=== PATIENT | male | born 1975 | race Caucasian/White ===

== ENCOUNTER 2023-07-30 09:47 | Emergency (ER) | payer BC, SELFPAY ==
[2023-07-30 09:50] VITALS: BP 122/84
--- NOTE | 2023-07-30 10:51 | ED.GENMED ---
History of Present Illness
General
Chief Complaint: Skin Problem
Source: patient
Exam Limitations: none
Time Seen by Provider: 07/30/23 10:24
Nursing documentation reviewed up to this point in time: agreed with
Travel History
Have you had any contact with someone who has COVID-19?: No
Do you have any symptoms of coronavirus? Fever > 100 degrees, chills, cough, shortness of breath, sore throat, loss of taste or smell, muscle aches, or headache?: No
History of Present Illness
History of Present Illness:
Patient presents to ED secondary to ongoing itchy/burning rash noted over his left arm over the past 2 weeks. Patient was evaluated urgent care center 1 week ago and was prescribed prednisone, which has not been filled. Since then, patient has
noticed drainage from the rash. Denies fever or chills. Denies nausea or vomiting. Denies trauma. Denies any inciting event or insect bites. Denies previous history of similar symptoms. Patient is currently taking Ozempic, and has for the past
7 months secondary to new onset diabetes.
Past History
Past History
ED Past Medical History: Hypercholesterolemia and Other (Diverticulitis)
ED Past Surgical History: None
Social History
Tobacco: Smoker
Alcohol: Occasional
Drug: None
Personal:
Living: with family
Employment: Employed (taxation agent )
Family History
Family History: Negative CAD
Review of Systems
Review of Systems
Allergies reviewed?: Yes
All Other Systems: ROS reviewed and negative except as documented in HPI and ROS
Constitutional: Reports no symptoms; Denies fever
ABD/GI: Reports no symptoms
Musculoskeletal: Reports no symptoms
Skin: Reports itching and rash
Neurological: Reports no symptoms
Phy Exam
Physical Exam
Physical Exam:
Physical Exam
General: no apparent distress, not acutely ill. afebrile
Head: nc/at. eomi
Neck: supple. normal range of motion.
Neuro: alert and oriented. no focal neurological deficits
Skin: an approx 2cm x 6cm area of erythema, flat, nonraised, lesion noted with multiple nonruptured, 1mm lesion below. nontender to palpation. no active drainage
Psychiatric: well kept. interactive and cooperative
Extremities: no edema. no calf tenderness.
Course
Vital Signs
Initial and Last Documented VS:
Initial Vital Signs
Temp Pulse Resp BP Pulse Ox
98.3 F 89 18 122/84 97
07/30/23 09:50 07/30/23 09:50 07/30/23 09:50 07/30/23 09:50 07/30/23 09:50
Last Documented Vital Signs
Temp Pulse Resp BP Pulse Ox
98.3 F 71 16 130/81 98
07/30/23 09:50 07/30/23 11:12 07/30/23 11:12 07/30/23 11:12 07/30/23 11:12
MDM/Problems Addressed
MDM/Problems Addressed:
History and exam consistent with nonspecific rash, does not appear to be [place] in appearance. Nonspecific rash which now appears to have ruptured with appearance of healing. Possible rash due to Ozempic injection?? However, in light of
patient's diabetic history, patient is at mild to moderate risk for developing superimposed infection. As such, patient will be started on Keflex x 5 days. Patient has appointment with his primary care physician next week, at which time he will be
reevaluated.
*Critical Care Note
Total Time (30-74mins, 75-104mins- exclusive of procedures): Not Applicable
ED Attending Note
-
Portions of this chart may have been created with voice recognition software.� Occasional wrong word or��sound alike� substitutions may have occurred due to the inherent limitations of voice recognition software.
Discharge Plan
Departure
Patient Disposition: Home (Routine Discharge)
Date of Disposition: 07/30/23
Time of Disposition: 11:01
Patient with high blood pressure during this ER visit?: No
Discharge Problem:
Rash
Instructions: Skin Rash (DC)
Prescriptions:
New
cephalexin 500 mg capsule
500 mg PO Q8H Qty: 15 0RF
No Action
finasteride [Propecia] 1 MG tablet
1 mg PO DAILY
sacubitril-valsartan [Entresto] 1 EACH tablet
1 ea PO BID
Metoprolol
1 tab PO HS
Vitamin D3 (cholecalciferol):
10,000 units PO DAILY
Referrals:
UNKNOWN - PT DOES,NOT KNOW [Family Provider] -
Activity Restrictions/Additional Instructions:
As discussed, please follow-up with your primary care physician next week for reevaluation. Your prescription has been sent electronically to [facility] in [place].
Interventions
Interventions:
*Risk Screen - Suicide Last Done: 07/30/23 09:55
*General Assessment Last Done: 07/30/23 10:59
*Neglect/Abuse Screening Last Done: 07/30/23 09:55
ED- Fall Risk Assessment Last Done: 07/30/23 11:12
*ED COVID-19 Vaccine History Last Done: 07/30/23 09:55
*Nursing Disposition Last Done: 07/30/23 11:12
ED-Skin Assessment Last Done: 07/30/23 11:12
Discharge Date and Time
Discharge Date/Time: 07/30/23 11:14
Print Language: AZERI
[2023-07-30 11:12] VITALS: BP 130/81
== END 2023-07-30 11:14 | disposition home or self-care (01) ==
LOC: EMR 09:47
PROVIDERS: EMERGENCY PHYSICIAN Emergency Medicine
DX: R21 Rash and other nonspecific skin eruption (principal); E11.9 Type 2 diabetes mellitus without complications; E78.00 Pure hypercholesterolemia, unspecified; F17.200 Nicotine dependence, unspecified, uncomplicated
CPT/HCPCS: 99282

== ENCOUNTER 2024-01-08 23:26 | Emergency (ER) | payer BC, SELFPAY ==
[2024-01-08 23:28] VITALS: BP 99/69
[2024-01-08 23:30] LABS: Glucose - Point of Care 102 mg/dl (70-99)
[2024-01-08 23:32] VITALS: BMI 31.2
[2024-01-08 23:34] VITALS: BP 104/78
[2024-01-08] MEDS: NSS 1000 IV (23:38)
[2024-01-08 23:40] VITALS: BP 116/85
[2024-01-08 23:45] VITALS: BP 119/86
[2024-01-08 23:55] LABS: Hematocrit 40.9 % (39.0-52.0); Hemoglobin 14.4 g/dL (13.0-18.0); Mean Corp Hgb Conc. 35.2 g/dL (33.0-37.0); Mean Corpuscular Hgb 29.6 pg (27.0-31.0); Mean Corpuscular Volume 84.2 fL (80.0-94.0); Mean Platelet Volume 10.5 fL (7.4-10.4); Platelet Count 325 10^3/uL (130-400); Red Blood Cell Count 4.86 10^6/uL (4.70-6.10); Red Cell Dist. Width 13.5 % (11.5-14.5); White Blood Cell Count 13.4 10^3/uL (4.8-10.8)
[2024-01-09] VITALS: BP 115/83
[2024-01-09 00:10] LABS: ALT (SGPT) 56 U/L (0-50); AST (SGOT) 42 U/L (17-59); Albumin 4.4 g/dl (3.5-5.0); Alkaline Phosphatase 35 U/L (38-126); Blood Urea Nitrogen 24 mg/dl (9-20); Calcium 9.4 mg/dl (8.4-10.2); Carbon Dioxide 21 mmol/L (22-30); Chloride 104 mmol/L (98-107); Estimated Creatinine Clearance > 125 ml/min; Glucose 121 mg/dl (70-99); Potassium 4.3 mmol/L (3.5-5.1); Sodium 139 mmol/L (135-145); Total Bilirubin 0.9 mg/dl (0.2-1.3); Total Protein 7.2 g/dl (6.3-8.2); eGFR > 60.00
[2024-01-09 00:15] VITALS: BP 117/78
--- NOTE | 2024-01-09 00:21 | ED.GENMED ---
History of Present Illness
General
Chief Complaint: Fainting/Passed Out
Source: patient and spouse
Exam Limitations: none
Time Seen by Provider: 01/08/24 23:29
Nursing documentation reviewed up to this point in time: agreed with
History of Present Illness
History of Present Illness:
Patient is a 48-year-old male an episode of syncope when his is being admitted to the hospital for pneumonia and there is a discussion whether this could be cancer or not. Patient became lightheaded and passed out. Patient is passed out
before but not for some time. Patient denies any headaches, visual or speech difficulties. Patient denies any focal weakness or ataxia. Patient denies any chest pain, shortness of breath or palpitations. Patient did admit to diaphoresis and
feeling nauseous but denies any vomiting, diarrhea, melena or hematochezia. Patient's heart rate was in the 30s to 40s and he was hypotensive when the staff responded to home.
Past History
Past History
ED Past Medical History: Hypercholesterolemia, NIDDM, Hypothyroidism and Other (Diverticulitis, sleep apnea)
ED Past Surgical History: None
Social History
Tobacco: Former smoker
Alcohol: Occasional
Drug: None
Personal:
Living: with family
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
Family History
Family History: Negative CAD
Review of Systems
Review of Systems
All Other Systems: ROS reviewed and negative except as documented in HPI and ROS
Constitutional: Denies fever, fatigue or chills
EENT: Reports no symptoms
Respiratory: Reports no symptoms
Cardiac: Reports diaphoresis and syncope; Denies chest pain or palpitations
ABD/GI: Reports nausea; Denies abdominal pain, vomiting, diarrhea, constipated, bloody stools, black stools or anorexia
: Reports no symptoms
Musculoskeletal: Reports no symptoms
Skin: Reports no symptoms
Neurological: Reports no symptoms
Hematologic/Lymphatic: Reports no symptoms
Psychiatric: Reports no symptoms
Phy Exam
Physical Exam
Physical Exam:
Physical Exam
General: mild distress, alert and appropriate, well nourished, well hydrated
HENT: Normocephalic, supple with no lymphadenopathy, no thyromegaly
Eyes: Clear sclera, conjuctiva without injection
Heart: Regular rhythm and bradycardic rate. No S3, S4. No murmur. No NVD
Lungs: No respiratory distress, no stridor, lung sounds clear and equal bilaterally
Abdomen: Soft, nontender, no organomegaly,BS good
Neuro: Alert and oriented x 3, CN II - XII intact, no motor focality, no cerebellar dysfunction
Skin: no rash. Pale diaphoretic
Psychiatric: well kept. interactive and cooperative
Extremities: No edema, cyanosis, tenderness, Good and equal peripheral pulses.
Course
Orders/Labs/Results
Orders:
Orders
01/08/24 23:28
EKG [Electrocardiogram (*1)] Urgent
Reason for Study: Syncope
EKG- Treatment ONCE
01/08/24 23:34
0.9% Sodium Chloride 1000 ml [Nss] 1,000 ml IV BOLUS
01/08/24 23:39
Complete Blood Count/With Diff Urgent
Comprehensive Metabolic Panel Urgent
Abnormal Lab Results
01/08/24 01/08/24
23:29 23:39
WBC 13.4 H 10^3/uL
(4.8-10.8)
MPV 10.5 H fL
(7.4-10.4)
Carbon Dioxide 21 L mmol/L
(22-30)
BUN 24 H mg/dl
(9-20)
Glucose 121 H mg/dl
(70-99)
ALT 56 H U/L
(0-50)
Alkaline Phosphatase 35 L U/L
(38-126)
POC Glucose 102 H mg/dl
(70-99)
01/08/24 23:39
01/08/24 23:39
Vital Signs
Initial and Last Documented VS:
Initial Vital Signs
Temp Pulse Resp BP Pulse Ox
99 F 70 18 99/69 96
01/08/24 23:28 01/08/24 23:28 01/08/24 23:28 01/08/24 23:28 01/08/24 23:28
Last Documented Vital Signs
Temp Pulse Resp BP Pulse Ox
99 F 76 13 117/78 96
01/08/24 23:28 01/09/24 00:15 01/09/24 00:15 01/09/24 00:15 01/09/24 00:15
*Radiology
Radiology exam reviewed: other (Not applicable)
*Pulse Oximetry
Patient hypoxic: no
*EKG
Interpreted by ED Provider?: Yes
EKG Intrepretation Date: 01/09/24
EKG Intrepretation Time: 00:24
Interpretation: normal
Comparison EKG: no changes
Heart Rate: 47
Rate: bradycardiac
Rhythm: sinus
[place]: normal axis
Interval: normal interval
QRS Pattern: normal QRS
Ischemia: no ischemia
*Gas Worker Interpretation
Rate: bradycardiac
Interpretation: abnormal
Heart Rate: 44
Rhythm: sinus
*Critical Care Note
Total Time (30-74mins, 75-104mins- exclusive of procedures): Not Applicable
Update Note
Update Note:
Repeat exam of the patient shows a heart rate of 74 patient feeling much improved. Labs unremarkable. Patient will be discharged as vasovagal syncope.
ED Attending Note
-
Portions of this chart may have been created with voice recognition software.� Occasional wrong word or��sound alike� substitutions may have occurred due to the inherent limitations of voice recognition software.
Discharge Plan
Departure
Patient Disposition: Home (Routine Discharge)
Date of Disposition: 01/09/24
Time of Disposition: 00:25
Patient with high blood pressure during this ER visit?: No
Condition: Good
Covid-19: Not Applicable
Discharge Problem:
Vasovagal syncope
Instructions: Syncope (Fainting) (DC)
Prescriptions:
No Action
metformin 1,000 mg Tablet
1,000 mg PO BID
Patient Comments:
pt says he is not good about taking this regularly 01/08/24
Ozempic 2 mg/dose (8 mg/3 mL) Pen Injector
2 mg SC WE
Activity Restrictions/Additional Instructions:
Make sure to drink plenty of fluids. Follow-up with your family doctor. Any problems please return.
Interventions
Interventions:
*Risk Screen - Suicide Last Done: 01/08/24 23:29
*General Assessment Last Done: 01/08/24 23:29
*Neglect/Abuse Screening Last Done: 01/08/24 23:29
*ED COVID-19 Vaccine History Last Done: 01/08/24 23:34
ED- Cardiac Assessment Last Done: 01/08/24 23:35
ED- Neurological Assessment Last Done: 01/08/24 23:35
Discharge Date and Time
Print Language: KENYAN
[2024-01-09 00:30] VITALS: BP 118/79
[2024-01-09 00:45] LABS: % Basophils 0.5 % (0-2); % Eosinophils 2.2 % (0-6); % Immature Granulocytes 0.4 % (0-0.5); % Lymphocytes 40.1 % (20.5-51.1); % Monocytes 10.7 % (1.7-9.3); % Neutrophils 46.1 % (42.2-75.2); Absolute Basophils 0.1 10^3/uL (0-0.2); Absolute Eosinophils 0.3 10^3/uL (0-0.7); Absolute Immature Granulocytes 0.1 10^3/uL (0-0.05); Absolute Lymphocytes 5.4 10^3/uL (1.2-3.4); Absolute Monocytes 1.4 10^3/uL (0.1-0.6); Absolute Neutrophils 6.2 10^3/uL (1.4-6.5); Nucleated Red Blood Cells % 0 % (-)
== END 2024-01-09 00:49 | disposition home or self-care (01) ==
LOC: EMR 23:26
PROVIDERS: EMERGENCY PHYSICIAN Emergency Medicine; FAMILY PHYSICIAN Internal Medicine
DX: R55 Syncope and collapse (principal); Z87.891 Personal history of nicotine dependence
CPT/HCPCS: 99284; 96360; 80053; 82962; 85025; 93005

== ENCOUNTER 2024-04-09 16:43 | Emergency (ER) | payer BC, SELFPAY ==
[2024-04-09 16:47] VITALS: BP 134/93
--- NOTE | 2024-04-09 17:35 | ED.GENMED ---
History of Present Illness
General
Chief Complaint: Back Pain
Time Seen by Provider: 04/09/24 17:35
History of Present Illness
History of Present Illness:
TIME OF INITIAL ENCOUNTER: 5:40 PM
HPI: Patient primarily complains of right flank pain. Earlier, he did have some upper back pain but is now localized to the right flank. He denies any urinary hesitancy or any other urinary symptoms. He has had no fevers. He has no abdominal
pain. He declines analgesia.
EXAM:
GENERAL: Well appearing in no distress
HEENT: Moist oral mucosa
CARDIOVASCULAR: No murmurs, normal heart rate, regular rhythm, No chest wall tenderness
PULMONARY: No respiratory distress, breath sounds are clear and equal
ABDOMEN: Soft with no peritoneal signs, no tenderness
BACK: Minimal right CVA tenderness
NEUROLOGIC: Excellent strength all extremities, no coordination deficits
PSYCHIATRIC: Appropriate mental status, normal insight and judgement
EXTREMITIES: Nontender, no edema, moves all extremities equally
SKIN: No rash, no lesions
NUMBER AND COMPLEXITY OF PROBLEMS ADDRESSED AT THE ENCOUNTER
� Chronic conditions affecting care: Former smoker, diabetes, thyroid disease
� Acute Exacerbation and/or Progression of Chronic Illness: This is an acute problem
� Differential Diagnosis includes: Musculoskeletal etiology, ureteral stone, UTI/pyelonephritis
AMOUNT AND/OR COMPLEXITY OF DATA TO BE REVIEWED AND ANALYZED
� I performed an independent evaluation of and my interpretation is:
EKG:
CT: CT abdomen pelvis does not show any signs of stone
X-rays:
Laboratory Studies: CBC, CMP, lipase all normal
Other:
� Review of other/old records: The patient was seen here in the emergency department after syncopal event 3 months ago
� Clinical information was obtained by an independent historian: None needed
� Prescriptions/Medications Considered but not given: Declines analgesia
� Further testing considered but not performed:
RISK OF COMPLICATIONS AND/OR MORBIDITY OR MORTALITY OF PATIENT MANAGEMENT
� Social determinants of health affecting care: Lives at home
� Discussion with other providers:
� Escalation of care including admission/observation vs risk of discharge considered: The patient appears rather comfortable. He declines analgesia. Will obtain CT imaging given the acute right flank pain.
ANY OTHER UPDATES:
Prior to discharge, CT imaging does not show any clear cause for his symptoms. We talked about the possibly of mild diverticulitis however he was told in the past he does take Tylenol for this. I doubt that he has diverticulitis. He will take
Tylenol we talked about using Motrin for musculoskeletal etiology of the pain. He requested blood work which I feel is reasonable given the location of upper abdominal discomfort. Lipase, chemistries as well as white count are all normal.
Past History
Past History
ED Past Medical History: Hypercholesterolemia, NIDDM, Hypothyroidism and Other (Diverticulitis, sleep apnea)
ED Past Surgical History: None
Social History
Tobacco: Former smoker
Alcohol: Occasional
Drug: None
Personal:
Living: with family
Employment: Employed (sales agent insurance )
Family History
Family History: Negative CAD
Phy Exam
Physical Exam
Physical Exam:
See HPI
Course
Orders/Labs/Results
Orders:
Orders
04/09/24 17:49
CT Abd/pel Without Iv Or Oral Urgent
Comment:
Reason For Exam: acute R flank pain
04/09/24 18:07
Urinalysis Reflex To Culture Urgent
Date Specimen was Collected: 04/09/24
Time Specimen was Collected: 18:06
04/09/24 20:33
Comprehensive Metabolic Panel Urgent
Lipase Urgent
04/09/24 21:39
Complete Blood Count/With Diff Urgent
Abnormal Lab Results
04/09/24 04/09/24
20:33 21:39
Absolute Monos (auto) 0.9 H 10^3/uL
(0.1-0.6)
Monocytes % 11.0 H %
(1.7-9.3)
BUN 21 H mg/dl
(9-20)
Glucose 105 H mg/dl
(70-99)
04/09/24 21:39
04/09/24 20:33
Vital Signs
Initial and Last Documented VS:
Initial Vital Signs
Temp Pulse Resp BP Pulse Ox
36.6 C 74 18 134/93 98
04/09/24 16:47 04/09/24 16:47 04/09/24 16:47 04/09/24 16:47 04/09/24 16:47
Last Documented Vital Signs
Temp Pulse Resp BP Pulse Ox
36.6 C 76 18 136/83 98
04/09/24 16:47 04/09/24 22:11 04/09/24 22:11 04/09/24 22:11 04/09/24 22:11
*Critical Care Note
Total Time (30-74mins, 75-104mins- exclusive of procedures): Not Applicable
ED Attending Note
-
Portions of this chart may have been created with voice recognition software.� Occasional wrong word or��sound alike� substitutions may have occurred due to the inherent limitations of voice recognition software.
Discharge Plan
Departure
Patient Disposition: Home (Routine Discharge)
Date of Disposition: 04/09/24
Time of Disposition: 20:02
Patient with high blood pressure during this ER visit?: Yes
Discharge Problem:
Acute right flank pain
Prescriptions:
No Action
metformin 1,000 mg Tablet
1,000 mg PO BID
Patient Comments:
pt says he is not good about taking this regularly 01/08/24
Ozempic 2 mg/dose (8 mg/3 mL) Pen Injector
2 mg SC WE
Referrals:
Ji Leal MD [Family Provider] -
Activity Restrictions/Additional Instructions:
Urinalysis shows no sign of infection and there was no blood in the urine. The CAT scan showed a trace amount of fluid near the liver 'possible early/very mild diverticulitis'. As you have said, you could try Tylenol. You could also try ibuprofen
for the possibility of muscle type of pain. I recommend 3-4 [id number] ibuprofen (Motrin) every 8 hours with food for a few days. Return here if worse.
Interventions
Interventions:
*Risk Screen - Suicide Last Done: 04/09/24 22:11
*General Assessment Last Done: 04/09/24 17:33
*Neglect/Abuse Screening Last Done: 04/09/24 17:33
*ED COVID-19 Vaccine History Last Done: 04/09/24 17:33
*Nursing Disposition Last Done: 04/09/24 22:11
ED-Musculoskeletal Assessment Last Done: 04/09/24 17:33
Discharge Date and Time
Discharge Date/Time: 04/09/24 22:12
Print Language: CAMEROONIAN
[2024-04-09 18:44] LABS: Urine Albumin Negative (Neg - Trace); Urine Bilirubin Negative (Negative); Urine Character Clear (Clear); Urine Color Yellow; Urine Glucose Negative (Negative); Urine Ketone Negative (Negative); Urine Leukocyte Negative (Negative); Urine Nitrite Negative (Negative); Urine Occult Blood Negative (Negative); Urine Specific Gravity 1.025 (<1.030); Urine Urobilinogen Negative (Neg - 1+)
[2024-04-09 21:05] LABS: ALT (SGPT) 24 U/L (0-50); AST (SGOT) 22 U/L (17-59); Albumin 4.5 g/dl (3.5-5.0); Alkaline Phosphatase 58 U/L (38-126); Blood Urea Nitrogen 21 mg/dl (9-20); Carbon Dioxide 26 mmol/L (22-30); Chloride 106 mmol/L (98-107); Glucose 105 mg/dl (70-99); Lipase 118 U/L (23-300); Sodium 136 mmol/L (135-145); Total Bilirubin 0.6 mg/dl (0.2-1.3); Total Protein 6.7 g/dl (6.3-8.2); eGFR > 60.00
[2024-04-09 21:49] LABS: % Basophils 0.9 % (0-2); % Eosinophils 3.5 % (0-6); % Immature Granulocytes 0.4 % (0-0.5); % Lymphocytes 35.9 % (20.5-51.1); % Neutrophils 48.3 % (42.2-75.2); Absolute Basophils 0.1 10^3/uL (0-0.2); Absolute Eosinophils 0.3 10^3/uL (0-0.7); Absolute Lymphocytes 2.8 10^3/uL (1.2-3.4); Absolute Monocytes 0.9 10^3/uL (0.1-0.6); Absolute Neutrophils 3.8 10^3/uL (1.4-6.5); Hematocrit 40.4 % (39.0-52.0); Hemoglobin 13.9 g/dL (13.0-18.0); Mean Corp Hgb Conc. 34.4 g/dL (33.0-37.0); Mean Corpuscular Hgb 29.4 pg (27.0-31.0); Mean Corpuscular Volume 85.4 fL (80.0-94.0); Mean Platelet Volume 9.9 fL (7.4-10.4); Nucleated Red Blood Cells % 0 % (-); Platelet Count 280 10^3/uL (130-400); Red Blood Cell Count 4.73 10^6/uL (4.70-6.10); Red Cell Dist. Width 13.3 % (11.5-14.5); White Blood Cell Count 7.9 10^3/uL (4.8-10.8)
[2024-04-09 22:11] VITALS: BP 136/83
== END 2024-04-09 22:12 | disposition home or self-care (01) ==
LOC: EMR 16:43
PROVIDERS: EMERGENCY PHYSICIAN Emergency Medicine; FAMILY PHYSICIAN Internal Medicine
DX: R10.9 Unspecified abdominal pain (principal); E03.9 Hypothyroidism, unspecified; E11.9 Type 2 diabetes mellitus without complications; E78.00 Pure hypercholesterolemia, unspecified; G47.30 Sleep apnea, unspecified; Z87.891 Personal history of nicotine dependence
CPT/HCPCS: 99284; 74176; 80053; 81003; 83690; 85025